=== PATIENT | female | born 1975 | race Caucasian/White ===

== ENCOUNTER 2021-09-02 18:21 | Emergency (ER) | payer OTHER, SELFPAY ==
[2021-09-02] VITALS (7 sets, daily range): BP systolic 135–146; BP diastolic 83–98; PULSE 65–87; RESP 16–32; TEMP 36.4; O2SAT 98–100
--- NOTE | ~2021-09-02 | XR_ITS ---
EXAMINATION: XR chest 1V portable Exam Date/Time: 09/02/2021 18:30 CDT CLINICAL HISTORY: dyspnea Comparison: None available. RESULT: Lines, tubes, and devices: None. Lungs and pleura: Low lung volumes. Diffuse reticular pattern, with indistinct vascular margins. Cardiomediastinal silhouette: Partially obscured, grossly normal cardiomediastinal silhouette. Other: No acute osseous or upper abdominal finding. IMPRESSION: Interstitial pulmonary edema. Reviewed, dictated and finalized at location K.
--- NOTE | 2021-09-02 18:27 | ECG_ITS ---
Measurements Intervals [place] Rate: 83 P: 40 DC: 172 QRS: 22 QRSD: 96 T: 56 QT: 343 QTc: 405 Interpretive Statements SINUS RHYTHM NO PREVIOUS ECG AVAILABLE FOR COMPARISON Electronically Signed On 09-03-2021 11:08:38 CDT by Tarun Pablo M.D.
[2021-09-02 18:56] LABS: Basophils Percent Auto 0.3 % (0.2-1.2); Eosinophils Absolute Auto 0.3 K/mm3 (0-0.3); Eosinophils Percent Auto 2.8 % (0-4.4); Hematocrit 42.9 % (37.0-47.0); Hemoglobin 15.2 g/dL (12.0-15.0); Immature Granulocyte Absolute 0.09 K/mm3 (0.00-0.031); Immature Granulocyte Percent A 0.8 % (0-0.5); Lymphocytes Absolute Auto 3.62 K/mm3 (0.9-3.2); Lymphocytes Percent Auto 30.4 % (18.3-44.2); Mean Corpuscular HGB Conc 35.4 g/dl (32-36); Mean Corpuscular Hemoglobin 32.4 pg (26-34); Mean Corpuscular Volume 91.5 fl (80-100); Mean Platelet Volume 9.3 fl (7.4-10.4); Monocytes Absolute Auto 1.1 K/mm3 (0.1-0.6); Monocytes Percent Auto 9.2 % (2.6-8.5); Neutrophils Absolute Auto 6.7 K/mm3 (1.3-6.7); Neutrophils Percent Auto 56.5 % (45.5-73.1); Platelet Count Result 325 k/mm3 (150-375); Red Blood Count 4.69 M/mm3 (4.2-5.4); Red Cell Distribution Width 12.7 % (11.5-14.5); White Blood Count 11.9 K/mm3 (4.5-10.0)
[2021-09-02] MEDS: ASPIRIN 81 MG CHEWABLE TABLET 324 MG PO (19:03)
[2021-09-02 19:04] LABS: Alanine Aminotransferase 23 U/L (4-35); Albumin Level 4.8 g/dL (3.5-5.1); Alkaline Phosphatase 94 U/L (38-126); Anion Gap 10 mmol/L (8-16); Aspartate Amino Transferase 26 U/L (14-36); Bilirubin,Total 0.3 mg/dL (0.2-1.3); Blood Urea Nitrogen 9 mg/dL (7-17); Calcium 9.3 mg/dL (8.4-10.2); Carbon Dioxide 24 mmol/L (22-30); Chloride 106 mmol/L (98-107); Estimated CRCL calculation 80 ml/min; Estimated Glomerular Filt Rate 60; Glucose 94 mg/dL (65-110); Lipase 51 U/L (23-300); Potassium 3.7 mmol/L (3.4-5.0); Sodium 140 mmol/L (137-145)
[2021-09-02 19:05] LABS: INR 1.1; Prothrombin Time 13.4 Seconds (11.1-14.7)
--- NOTE | 2021-09-02 19:15 | PC.NURSE ---
Assumed care of pt at this time. pt alert and upright on stretcher, updated on POC
[2021-09-02 19:17] LABS: Troponin I < 0.012 ng/mL (0.000-0.034)
--- NOTE | 2021-09-02 19:26 | ED.SOB ---
HPI - SOB/Dyspnea General Chief Complaint: Shortness of Breath/Dyspnea Stated Complaint: SOB, Dizzy Time Seen by Provider: 09/02/21 18:25 History of Present Illness HPI Narrative: Patient is a 45-year-old male who presents ER with sudden onset dizziness. Began shortly before arrival. Reports waking feel short of breath. He has been nauseated. Reports he has been having spinning dizziness intermittently over the last 3 days. Associated with sinus congestion. No change in hearing. No weakness or numbness to her arm or leg. Reports anxiousness and some chest tightness associated with the dizziness that is occurring at this time. Unsure if worsened by moving head. Has history of vertigo in the past. This is more intense. Related Data Allergies Allergy/AdvReac Type Severity Reaction Status Date / Time No Known Allergies Allergy Verified 09/02/21 18:31 Review of Systems Review of Systems: All systems reviewed & are unremarkable except as noted in HPI and below Constitutional: Constitutional: Denies chills, Denies fever(s) and Denies weakness ENT: Denies dysphagia, Reports dizziness and Denies sore throat Cardiovascular: Cardiovascular: Reports chest pain (Tightness), Denies rapid heart rate and Denies radiating jaw, neck or arm pain Respiratory: Respiratory: Denies cough, Reports dyspnea and Denies wheezing Gastrointestinal: Gastrointestinal: Denies abdominal pain, Denies diarrhea, Reports nausea and Denies vomiting Neurologic: Denies headache(s), Denies focal weakness, Denies numbness and Denies weakness PMFSH Past Medical History Medical History (Updated 09/02/21 @ 22:19 by Corey Moore MD) Vertigo Surgical History Surgical History (Updated 09/02/21 @ 22:07 by Corey Moore MD) No pertinent past surgical history Social History Social History (Updated 09/02/21 @ 22:07 by Corey Moore MD) Smoking status: Current every day smoker Exam Narrative: GENERAL: Well-appearing, well-nourished, and in no acute distress. HEAD: Normocephalic, atraumatic. EYES: PERRLA and EOMI. ENT: Mucous membranes moist. TM's normal bilaterally. CHEST: Clear to auscultation. No respiratory distress. HEART: Regular rate and rhythm. Normal peripheral pulses. ABDOMEN: Soft, nontender, nondistended. EXTREMITIES: Normal range of motion. No edema. SKIN: Warm, dry, no rash. NEURO: Alert and oriented x3. PSYCH: Normal mood and affect. Course Course Emergency Course: Patient reports several years ago he had a episode of chest pain. His lab work was normal but he had a borderline stress test. He underwent cardiac catheterization and they found no disease. He received no stents. He is not on medication for cardiac issues. Reports his symptoms have decreased with meclizine. Offered anxiety medication and Valium which could help with some anxiousness as well as vertigo. Patient declines. Will obtain second troponin as long as negative for discharge with anxiety and vertigo paperwork. Patient's lungs are free of abnormal lung sounds, he is satting 100% on room air breathing 13 times a minute with a heart rate in the 60s. My interpretation of patient's chest x-ray is that he has poor lung volumes due to being exhalation phase. Patient's symptoms seem consistent with vertig, chest pain, and anxiety. Troponins negative x2. Vital Signs Vital signs: Vital Signs Temperature 97.6 F 09/02/21 18:23 Pulse Rate 87 09/02/21 18:23 Respiratory Rate 32 H 09/02/21 18:23 Blood Pressure 146/98 H 09/02/21 18:23 Pulse Oximetry 98 09/02/21 18:23 Temperature 97.6 F 09/02/21 18:23 Pulse Rate 72 09/02/21 22:17 Respiratory Rate 16 09/02/21 22:17 Blood Pressure 136/85 09/02/21 22:17 Pulse Oximetry 100 09/02/21 22:17 MDM - SOB/Dyspnea Lab Data Result diagrams: 09/02/21 18:47 09/02/21 18:47 Labs: Lab Results 09/02/21 09/02/21 09/02/21 Range/Units 18:47 18:47
[2021-09-02 19:43] LABS: NT Pro B Type Natriuretic Pept 21 pg/mL (5-100)
[2021-09-02] MEDS: MECLIZINE HCL 25 MG TABLET PO (19:56)
[2021-09-02 22:06] LABS: Troponin I < 0.012 ng/mL (0.000-0.034)
== END 2021-09-02 22:39 | disposition home or self-care (01) ==
PROVIDERS: Emergency Provider Emergency Medicine
DX: R42 Dizziness and giddiness (principal); R07.9 Chest pain, unspecified; F17.200 Nicotine dependence, unspecified, uncomplicated; R06.02 Shortness of breath
CPT/HCPCS: 36415; 71045; 80053; 83690; 83880; 84484; 85025; 85610; 85730; 93005; 99284; A9270